=== PATIENT | female | born 1980 | race Caucasian/White ===

== ENCOUNTER 2018-03-01 12:01 | Emergency (ER) | payer OTHER ==
[2018-03-01 12:10] VITALS: BP 143/92
--- NOTE | 2018-03-01 12:38 | UC ---
Lower Extremity/Ankle HPI - HPI Summary HPI Summary: Right fifth toe ran over the last week by shopping cart has continued pain in right fifth toe - History of Current Complaint Chief Complaint: UCLowerExtremity Stated Complaint: TOE INJURY Time Seen by Provider: 03/01/18 12:31 Hx Obtained From: Patient Hx Last Menstrual Period: 02/10/18 ?: No Onset/Duration: Sudden Onset Pain Intensity: 5 Pain Scale Used: 0-10 Numeric Aggravating Factor(s): Standing, Ambulation Alleviating Factor(s): Rest, Elevation, Ice Able to Bear Weight: Yes - Allergies/Home Medications Allergies/Adverse Reactions: Allergies Allergy/AdvReac Type Severity Reaction Status Date / Time acetaminophen [From Percocet] Allergy Rash Verified 03/01/18 12:11 oxycodone [From Percocet] Allergy Rash Verified 03/01/18 12:11 zinc Allergy Vomiting Verified 03/01/18 12:11 Home Medications: Home Medications Methylphenidate HCl [Methylphenidate ER] 54 mg PO DAILY 03/01/18 [History Confirmed 03/01/18] PMH/Surg Hx/FS Hx/Imm Hx Previously Healthy: Yes - Surgical History Surgical History: Yes Surgery Procedure, Year, and Place: LAP APPY 2011. TUBAL LIGATION 06/2015 - Family History Known Family History: Positive: None - Social History Occupation: Employed Full-time Lives: With Family Alcohol Use: Rare Substance Use Type: None Smoking Status (MU): Never Smoked Tobacco Review of Systems Constitutional: Negative Skin: Negative Eyes: Negative ENT: Negative Respiratory: Negative Cardiovascular: Negative Gastrointestinal: Negative Genitourinary: Negative Motor: Negative Neurovascular: Negative Musculoskeletal: Arthralgia - right 5th toe, Edema - right fifth toe, Other: - bruising right fifth toe Neurological: Negative Psychological: Negative Is Patient Immunocompromised?: No All Other Systems Reviewed And Are Negative: Yes Physical Exam Triage Information Reviewed: Yes Appearance: Well-Appearing, No Pain Distress, Well-Nourished Vital Signs: Initial Vital Signs Temp 98 F 03/01/18 12:07 Pulse 100 03/01/18 12:07 Resp 20 03/01/18 12:07 BP 143/92 03/01/18 12:07 Pulse Ox 100 03/01/18 12:07 Vital Signs Reviewed: Yes Eye Exam: Normal Eyes: Positive: Conjunctiva Clear ENT Exam: Normal ENT: Positive: Normal ENT inspection, Hearing grossly normal. Negative: Muffled voice, Hoarse voice, Dental tenderness Dental Exam: Normal Neck exam: Normal Neck: Positive: Supple, Nontender Respiratory Exam: Normal Respiratory: Positive: Chest non-tender, No respiratory distress, No accessory muscle use Cardiovascular Exam: Normal Cardiovascular: Positive: RRR, Pulses Normal, Brisk Capillary Refill Musculoskeletal Exam: Normal, Other Musculoskeletal: Positive: Strength Limited @ - rith fifth toe, ROM Limited @ - right fifth toe, Edema @ - right fifth toe Neurological Exam: Normal Psychological Exam: Normal Skin Exam: Normal Diagnostics - Radiology No standard instances Xray Interpretation: No Acute Changes Radiology Interpretation Completed By: ED Physician, Radiologist Lower Extremity Course/Dx - Course Course Of Treatment: post op shoe, rice, ibuprofen follow with pcp prn - Differential Dx/Diagnosis Provider Diagnoses: right fifth toe crush injury/contusion Discharge - Sign-Out/Discharge Documenting (check all that apply): Discharge/Admit/Transfer - Discharge Plan Condition: Stable Disposition: HOME Patient Education Materials: Ibuprofen (By mouth), Contusion in Adults (ED), R.I.C.E. Treatment (ED), Crush Injury (ED) Referrals: Kalpesh Finch MD [Primary Care Provider] - If Needed - Billing Disposition and Condition Condition: STABLE Disposition: HOME
--- NOTE | 2018-03-01 12:39 | RAD ---
HISTORY: Right fifth toe pain status post injury COMPARISONS: None VIEWS: 3, Frontal, lateral, and oblique views of the fifth digit of the right foot FINDINGS: BONE DENSITY: Normal. BONES: There is no displaced fracture. JOINTS: There is no arthropathy. ALIGNMENT: There is no dislocation. SOFT TISSUES: Unremarkable. OTHER FINDINGS: None. IMPRESSION: NO ACUTE OSSEOUS INJURY. IF SYMPTOMS PERSIST, RECOMMEND REPEAT IMAGING.
== END 2018-03-01 13:00 | disposition home or self-care (01) ==
LOC: UCEAST 12:01
DX: S90.121A Contusion of right lesser toe(s) without damage to nail, initial encounter (principal); S97.121A Crushing injury of right lesser toe(s), initial encounter; W22.8XXA Striking against or struck by other objects, initial encounter; Y93.9 Activity, unspecified; Y92.512 Supermarket, store or market as the place of occurrence of the external cause; Z88.6 Allergy status to analgesic agent; Z88.5 Allergy status to narcotic agent
CPT/HCPCS: 99212; G0463

== ENCOUNTER 2019-07-06 16:04 | Emergency (ER) | payer OTHER ==
--- OUTSIDE RECORDS SUMMARY | 2019-07-06 16:23 | XMS REPORT | Continuity of Care Document ---
:1980 External Reference #:[id number] Author Name Marina Ramirez M.D. Address [address] [place] [address] Care Team Providers Name Role Phone Kalpesh Finch M.D. 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 Onset: 10/22/2017 Allergic rhinitis due to animals Marina Ramirez M.D. Onset: 03/05/2017 Toxic effect of venom Marina Ramirez M.D. Onset: 02/16/2014 Allergic rhinitis Marina Ramirez M.D. Onset: 02/16/2014 Allergic rhinitis due to pollen Marina Ramirez M.D. Onset: 02/16/2014 Cough Marina Ramirez M.D. Onset: 02/16/2014 Social History Type Date Description Comments Sex Unknown ETOH Use Occasionally consumes alcohol Tobacco Use Start: Unknown End: Patient is a former 15-20 years ago Unknown smoker Recreational Drug Use Never Used Drugs Allergies, Adverse Reactions, Alerts Active Allergies Reaction Severity Comments Date Zinc vomitting 02/16/2014 Percocet rash 02/16/2014 Medications Active Medications SIG Qnty Indications Ordering Date Provider Montelukast Sodium 1 by mouth every 30tabs J45.30 Marina Ramirez, 2018 10mg day M.DDina Tablets Symbicort Use 2 Inhalations 30.6units Ly 09/11/2016 80-4.5mcg/Act By Mouth Two Uldrich, 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 MDinaD. 50mcg Tablets Citalopram Darlow, Kalpesh Hydrobromide A., M.D. 40mg Tablets Fexofenadine HCL 1 po qd 30tabs Unknown 180mg Tablets Ventolin HFA 2 puffs by mouth 36gm Ly 108(90Base) every 4-6 hours Uldrich, INDUSTRI[employer] AERIAL INSTALLER-C mcg/Act Aerosol as needed for shortness of breath or coughing. Methylphenidate HCL 1 tab twice Unknown 20mg daily. Tablets Vitamin B Complex 1 by mouth every Unknown day Tablets Calcium 600+D3 Unknown [id number] Tablets Melatonin Unknown 10mg Capsules Cranberry Unknown 4200mg Capsules Vitamin D3 1 capsule by Unknown 1000Unit mouth once daily Capsules x 6 weeks Medications Administered in Office Medication SIG Qnty Indications Ordering Provider Date Injection Allergy Injection 11/04/2016 Injection Injection Allergy Injection 10/28/2016 Injection Injection Allergy Injection 09/23/2016 Injection Injection Allergy Injection 09/09/2016 Injection Injection Allergy Injection 08/19/2016 Injection Injection Allergy Injection 08/05/2016 Injection Injection Allergy Injection 07/22/2016 Injection Injection Allergy Injection 07/08/2016 Injection Injection Allergy Injection 07/01/2016 Injection Injection Allergy Injection 06/24/2016 Injection Injection Allergy Injection 06/10/2016 Injection Injection Allergy Injection 06/03/2016 Injection Injection Allergy Injection 04/29/2016 Injection Injection Allergy Injection 04/22/2016 Injection Injection Allergy Injection 04/17/2016 Injection Injection Allergy Injection 04/08/2016 Injection Injection Allergy Injection 04/01/2016 Injection Injection Allergy Injection 03/25/2016 Injection Injection Allergy Injection 03/04/2016 Injection Injection Allergy Injection 02/23/2016 Injection Injection Allergy Injection 02/15/2016 Injection Injection Allergy Injection 02/09/2016 Injection Injection Allergy Injection 02/05/2016 Injection Injection Allergy Injection 01/26/2016 Injection Injection Allergy Injection 01/19/2016 Injection Injection Allergy Injection 01/08/2016 Injection Injection Allergy Injection 12/29/2015 Injection Injection Allergy Injection 12/22/2015 Injection Injection Allergy Injection 08/29/2014 Injection Injection Allergy Injection 08/22/2014 Injection Injection Allergy Injection 08/12/2014 Injection Injection Allergy Injection 07/29/2014 Injection Injection Allergy Injection 07/15/2014 Injection Injection Allergy Injection 07/08/2014 Injection Injection Allergy Injection 06/24/2014 Injection Injection Allergy Injection 06/20/2014 Injection Injection Allergy Injection 06/01/2014 Injection Injection Allergy Injection 05/25/2014 Injection Injection Allergy Injection 04/27/2014 Injection Injection Allergy Injection 04/20/2014 Injection Injection Allergy Injection 04/13/2014 Injection Injection Allergy Injection 04/06/2014 Injection Injection Allergy Injection 03/30/2014 Injection Injection Allergy Injection 03/16/2014 Injection Injection Allergy Injection 03/09/2014 Injection Immunizations Description No Information Available Vital Signs Date Vital Result Comment 06/23/2019 4:16pm Height 64 inches 5'4" d Weight 168.00 lb Weight 76.205 kg Respiratory Rate 18 /min Heart Rate 91 /min O2 % BldC Oximetry 97 % BP Systolic 130 mmHg BP Diastolic 90 mmHg Asthma Control Test 20 Fractional Exhaled Nitric Oxide 8 BMI (Body Mass Index) 28.8 kg/m2 10/28/2018 4:10pm Height 64 inches d Weight 176.00 lb Weight 79.834 kg Respiratory Rate 20 /min Heart Rate 90 /min O2 % BldC Oximetry 97 % BP Systolic 134 mmHg BP Diastolic 94 mmHg Asthma Control Test 19 Fractional Exhaled Nitric Oxide 5 BMI (Body Mass Index) 30.2 kg/m2 Results Description No Information Available Procedures Date Code Description Status 06/23/2019 82544 Nitric Oxide Gas Determination Completed 06/23/2019 81307 Pre PFT Completed Medical Devices Description No Information Available Encounters Description No Information Available Assessments Date Code Description Provider 06/23/2019 J45.30 Mild persistent asthma, uncomplicated Marina Ramirez M.D. 06/23/2019 J30.89 Other allergic rhinitis Marina Ramirez M.D. 06/23/2019 J30.1 Allergic rhinitis due to pollen Marina Ramirez M.D. 06/23/2019 J30.81 Allergic rhinitis due to animal (cat) (dog) Marina Ramirez M.D. hair and dander Plan of Treatment Future Appointment(s):12/22/2019 4:20 pm - Marina Ramirez M.D. at [place] Functional Status Description No Information Available Mental Status Description No Information Available Referrals Description No Information Available
[2019-07-06 16:38] LABS: ABS Lymphocytes 1.8 10^3/ul (1.0-4.8); ABS Monocytes 0.5 10^3/ul (0-0.8); ABS Neutrophils 7.4 10^3/ul (1.5-7.7); Eosinophil % 0.1 %; Hematocrit 42 % (35-47); Hemoglobin 14.5 g/dL (12.0-16.0); Lymphocyte % 18.4 %; Mean Corpuscular HGB Conc 35 g/dL (31-36); Mean Corpuscular Hemoglobin 32 pg (27-31); Mean Corpuscular Volume 93 fL (80-97); Mean Platelet Volume 8.7 fL (7.4-10.4); Platelet Count 265 10^3/uL (150-450); Red Blood Count 4.53 10^6 /uL (3.70-4.87); Red Cell Distribution Width 14 % (10-15); White Blood Count 9.7 10^3/uL (3.5-10.8)
[2019-07-06 16:45] LABS: INR 0.99 (0.82-1.09)
[2019-07-06 16:55] LABS: Albumin 4.8 g/dL (3.2-5.2); Albumin/Globulin Ratio 1.9 (1-3); BUN/Creatinine Ratio 10.7 (8-20); Calcium 9.6 mg/dL (8.6-10.3); EGFR Non-African American 85.2 (>60); Globulin 2.5 g/dL (2-4); Potassium 3.7 mmol/L (3.5-5.0); Total Bilirubin 1.1 mg/dL (0.2-1.0); Total Protein 7.3 g/dL (6.4-8.9)
[2019-07-06] MEDS ORDERED: Aspirin 81 mg CHEW TAB* 81 MG TAB.CHEW PO ONE (18:25)
[2019-07-06 20:13] VITALS: BP 128/91
--- NOTE | 2019-07-06 22:03 | ED ---
HPI Chest Pain - HPI Summary HPI Summary: This patient is a 39 year old F presenting to [facility] accompanied by boyfriend with a chief complaint of chest pain since 1399. Patient states that she was at Dr. Finch's office for a routine check up and was placed on a 24 hour BP cuff. At 1400 patient states she received a call about her son who is bipolar. The patient was told he was having a hard day. As a result the patient's BP increased to 146/119. Patient contacted Dr. Finch and was informed to go to the ED. The patient rates the pain 2/10 in severity characterized as pressure. Symptoms aggravated by phone call about son. Symptoms alleviated by nothing. Patient reports chest pain and GRAHAM. Patient denies sob, diaphoresis, nausea and dizziness. Patient denies and PMHx of stress test, blood clots and NC. Patient reports rare EtOH use. Patient denies tobacco use and substance abuse. Medications reviewed. Allergies noted. Allergies Allergy/AdvReac Type Severity Reaction Status Date / Time acetaminophen [From Percocet] Allergy Rash Verified 07/06/19 17:30 oxycodone [From Percocet] Allergy Rash Verified 07/06/19 17:30 zinc Allergy Vomiting Verified 07/06/19 17:30 Home Medications Medication Instructions Recorded Confirmed Type Beclomethasone Dipropionate [Qnasl] 21.2 gm BOTH NARES DAILY 07/06/19 07/06/19 History Budesonide/Formote 80/4.5(NF) 1 puff INH BID 07/06/19 07/06/19 History [Symbicort 80/4.5 (NF)] Citalopram TAB* [CeleXA TAB*] 40 mg PO DAILY 07/06/19 07/06/19 History Levothyroxine TAB* [Synthroid TAB*] 50 mcg PO DAILY 07/06/19 07/06/19 History Methylphenidate TAB* [Ritalin TAB*] 20 mg PO BID MDD 40 mg 07/06/19 07/06/19 History Montelukast Sodium TAB* [Singulair 10 mg PO DAILY 07/06/19 07/06/19 History TAB*] Silver Sulfadiazine 1%* [SILVadine 1 applic TOPICAL BID 07/06/19 07/06/19 History 1%*] - History of Current Complaint Chief Complaint: EDChestPainROMI Time Seen by Provider: 07/06/19 18:04 Hx Obtained From: Patient Hx Last Menstrual Period: 02/10/18 Onset/Duration: Started Hours Ago - 1400, Resolved Current Severity: None Pain Intensity: 0 Pain Scale Used: 0-10 Numeric Chest Pain Location: Diffuse Chest Pain Radiates: No Character: Pressure/Squeezing Aggravating Factor(s): Nothing Alleviating Factor(s): Nothing Associated Signs and Symptoms: Positive: Chest Pain, Recent Stress - Call about Bipolar son having a bad day, Other: - GRAHAM - Allergy/Home Medications Allergies/Adverse Reactions: Allergies Allergy/AdvReac Type Severity Reaction Status Date / Time acetaminophen [From Percocet] Allergy Rash Verified 07/06/19 17:30 oxycodone [From Percocet] Allergy Rash Verified 07/06/19 17:30 zinc Allergy Vomiting Verified 07/06/19 17:30 Home Medications: Home Medications Beclomethasone Dipropionate [Qnasl] 21.2 gm BOTH NARES DAILY 07/06/19 [History Confirmed 07/06/19] Budesonide/Formote 80/4.5(NF) [Symbicort 80/4.5 (NF)] 1 puff INH BID 07/06/19 [ History Confirmed 07/06/19] Citalopram TAB* [CeleXA TAB*] 40 mg PO DAILY 07/06/19 [History Confirmed ] Levothyroxine TAB* [Synthroid TAB*] 50 mcg PO DAILY 07/06/19 [History Confirmed 07/06/19] Methylphenidate TAB* [Ritalin TAB*] 20 mg PO BID MDD 40 mg 07/06/19 [History Confirmed 07/06/19] Montelukast Sodium TAB* [Singulair TAB*] 10 mg PO DAILY 07/06/19 [History Confirmed 07/06/19] Silver Sulfadiazine 1%* [SILVadine 1%*] 1 applic TOPICAL BID 07/06/19 [History Confirmed 07/06/19] PMH/Surg Hx/FS Hx/Imm Hx Endocrine/Hematology History: Reports: Hx Thyroid Disease - HYPO Denies: Hx Diabetes, Hx Systemic Lupus Erythematosus Cardiovascular History: Denies: Hx Congestive Heart Failure, Hx Hypertension, Hx Pacemaker/ICD, Other Cardiovascular Problems/Disorders Respiratory History: Reports: Hx Asthma - ALLERGIES Denies: Hx Chronic Obstructive Pulmonary Disease (COPD), Other Respiratory Problems/Disorders History: Denies: Hx Dialysis, Hx Renal Disease Musculoskeletal History: Denies: Hx Rheumatoid Arthritis, Hx Osteoporosis Sensory History: Reports: Hx Contacts or Glasses - GLASSES Denies: Hx Hearing Aid Opthamlomology History: Reports: Hx Contacts or Glasses - GLASSES Neurological History: Reports: Hx Migraine - WITH SINUS INFECTIONS, Other Neuro Impairments/Disorders - ADHD, CHRONIC FATIGUE SYNDROME Psychiatric History: Reports: Hx Anxiety, Hx Depression Denies: Hx Panic Disorder - Cancer History Hx Chemotherapy: No - Surgical History Surgery Procedure, Year, and Place: LAP APPY 2011. TUBAL LIGATION 06/2015 Hx Anesthesia Reactions: No Infectious Disease History: No Infectious Disease History: Denies: Traveled Outside the [place] in Last 30 Days - Family History Known Family History: Positive: None - Social History Alcohol Use: Occasionally Substance Use Type: Reports: None Smoking Status (MU): Never Smoked Tobacco Review of Systems Negative: Fever Positive: Chest Pain Positive: Headache All Other Systems Reviewed And Are Negative: Yes Physical Exam - Summary Physical Exam Summary: Constitutional: Well-developed, Well-nourished, Alert. (-) Distressed Skin: Warm, Dry HENT: Normocephalic; Atraumatic Eyes: Conjunctiva normal Neck: Musculoskeletal ROM normal neck. (-) JVD, (-) Stridor, (-) Tracheal deviation Cardio: Rhythm regular, rate normal, Heart sounds normal; Intact distal pulses; . Radial pulses are 2+ and symmetric. (-) Murmur, Good pulses bilaterally in radius, No calf tenderness, No venous cords, No pain with dorsiflexion of foot. Pulmonary/Chest wall: Effort normal. (-) Respiratory distress, (-) Wheezes, (-) Rales Abd: Soft, (-) tenderness, (-) Distension, (-) Guarding, (-) Rebound Musculoskeletal: (-) Edema Lymph: (-) Cervical adenopathy Neuro: Alert, Oriented x3 Psych: Mood and affect Normal Triage Information Reviewed: Yes Vital Signs On Initial Exam: Initial Vitals Temp Pulse Resp BP Pulse Ox 98.7 F 89 16 159/103 100 07/06/19 16:15 07/06/19 16:15 07/06/19 16:15 07/06/19 16:15 09/24/19 16:15 Vital Signs Reviewed: Yes Diagnostics - Vital Signs Vital Signs Temp Pulse Resp BP Pulse Ox 07/06/19 20:13 98.3 F 76 18 128/91 96 07/06/19 20:00 78 17 97 07/06/19 19:55 76 18 128/90 96 07/06/19 19:25 78 15 137/104 97 07/06/19 19:00 70 13 97 07/06/19 18:55 68 16 152/95 98 07/06/19 18:25 76 16 152/102 96 07/06/19 18:00 76 24 97 07/06/19 17:55 80 19 148/110 98 07/06/19 17:35 4 07/06/19 17:25 170/109 07/06/19 16:15 98.7 F 89 16 159/103 100 - Laboratory Lab Results: Lab Results 07/06/19 07/06/19 07/06/19 Range/Units 16:29 16:29 16:29 WBC 9.7 (3.5-10.8) 10^3/uL RBC 4.53 (3.70-4.87) 10^6 /uL Hgb 14.5 (12.0-16.0) g/dL Hct 42 (35-47) % MCV 93 (80-97) fL MCH 32 H (27-31) pg MCHC 35 (31-36) g/dL RDW 14 (10-15) % Plt Count 265 (150-450) 10^3/uL MPV 8.7 (7.4-10.4) fL Neut % (Auto) 76.4 % Lymph % (Auto) 18.4 % [place] % (Auto) 4.7 % Eos % (Auto) 0.1 % Baso % (Auto) 0.4 % Absolute Neuts (auto) 7.4 (1.5-7.7) 10^3/ul Absolute Lymphs (auto) 1.8 (1.0-4.8) 10^3/ul Absolute Monos (auto) 0.5 (0-0.8) 10^3/ul Absolute Eos (auto) 0.0 (0-0.6) 10^3/ul Absolute Basos (auto) 0.0 (0-0.2) 10^3/ul Absolute Nucleated RBC 0.0 10^3/ul Nucleated RBC % 0.0 INR (Anticoag Therapy) 0.99 (0.82-1.09) Sodium 137 (135-145) mmol/L Potassium 3.7 (3.5-5.0) mmol/L Chloride 103 (101-111) mmol/L Carbon Dioxide 26 (22-32) mmol/L Anion Gap 8 (2-11) mmol/L BUN 8 (6-24) mg/dL Creatinine 0.75 (0.51-0.95) mg/dL Est GFR ( Amer) 103.0 (>60) Est GFR (Non-Af Amer) 85.2 (>60) BUN/Creatinine Ratio 10.7 (8-20) Glucose 103 H (70-100) mg/dL Calcium 9.6 (8.6-10.3) mg/dL Total Bilirubin 1.10 H (0.2-1.0) mg/dL AST 17 (13-39) U/L ALT 13 (7-52) U/L Alkaline Phosphatase 65 (34-104) U/L Troponin I 0.00 (<0.04) ng/mL Total Protein 7.3 (6.4-8.9) g/dL Albumin 4.8 (3.2-5.2) g/dL Globulin 2.5 (2-4) g/dL Albumin/Globulin Ratio 1.9 (1-3) 07/06/19 Range/Units 19:22 WBC (3.5-10.8) 10^3/uL RBC (3.70-4.87) 10^6 /uL Hgb (12.0-16.0) g/dL Hct (35-47) % MCV (80-97) fL MCH (27-31) pg MCHC (31-36) g/dL RDW (10-15) % Plt Count (150-450) 10^3/uL MPV (7.4-10.4) fL Neut % (Auto) % Lymph % (Auto) % [place] % (Auto) % Eos % (Auto) % Baso % (Auto) % Absolute Neuts (auto) (1.5-7.7) 10^3/ul Absolute Lymphs (auto) (1.0-4.8) 10^3/ul Absolute Monos (auto) (0-0.8) 10^3/ul Absolute Eos (auto) (0-0.6) 10^3/ul Absolute Basos (auto) (0-0.2) 10^3/ul Absolute Nucleated RBC 10^3/ul Nucleated RBC % INR (Anticoag Therapy) (0.82-1.09) Sodium (135-145) mmol/L Potassium (3.5-5.0) mmol/L Chloride (101-111) mmol/L Carbon Dioxide (22-32) mmol/L Anion Gap (2-11) mmol/L BUN (6-24) mg/dL Creatinine (0.51-0.95) mg/dL Est GFR ( Amer) (>60) Est GFR (Non-Af Amer) (>60) BUN/Creatinine Ratio (8-20) Glucose (70-100) mg/dL Calcium (8.6-10.3) mg/dL Total Bilirubin (0.2-1.0) mg/dL AST (13-39) U/L ALT (7-52) U/L Alkaline Phosphatase (34-104) U/L Troponin I 0.01 (<0.04) ng/mL Total Protein (6.4-8.9) g/dL Albumin (3.2-5.2) g/dL Globulin (2-4) g/dL Albumin/Globulin Ratio (1-3) Result Diagrams: 07/06/19 16:29 07/06/19 16:29 Lab Statement: Any lab studies that have been ordered have been reviewed, and results considered in the medical decision making process. - Radiology Chest Xray Radiology Interpretation Completed By: ED Physician Summary of Radiographic Findings: Chest Xray reveals, per ED Physician, no acute process. - EKG 1610 Cardiac Rate: Tachycardia EKG Rhythm: Sinus Tachycardia - 105 bpm EKG Comparison: Other - new changes compared to 02/17/13 Summary of EKG Findings: EKG reveal a sinus tachacardia at 105 bpm with Q-waves 3 and avf. New changes when compared to prior on 02/17/13. 1731 Cardiac Rate: NL - 60 bpm EKG Rhythm: Sinus Rhythm EKG Comparison: Other - changes are new when compared to prior 02/17/13 Summary of EKG Findings: EKG reveals sinus rhythm at 60 bpm with Q-waves 3 and avf. New changes compaired to prior 02/17/13. Chest Pain Course/Dx - Course Course Of Treatment: Patient is here with chest pain after having a stressful day. Patient's symptoms are overall benign in nature outside of her hypertension. Patient had an EKG performed which was grossly unremarkable. Patient had serial troponins which were negative. Patient had a well score is 0 and was perc negative. Patient had a negative chest x-ray. Patient was discharged to follow-up with her primary care doctor sent her here for possible stress test. - Diagnoses Provider Diagnoses: Hypertension, Chest pain Discharge ED - Sign-Out/Discharge Documenting (check all that apply): Patient Departure - discharge Patient Received Moderate/Deep Sedation with Procedure: No - Discharge Plan Condition: Stable Disposition: HOME Patient Education Materials: Chest Pain (ED) Referrals: Kalpesh Finch MD [Primary Care Provider] - Additional Instructions: Please call your primary care doctor to have an appointment in one to 3 days Please return if you have resting chest pain, trouble breathing, any other concerning symptoms - Billing Disposition and Condition Condition: STABLE Disposition: Home - Attestation Statements Document Initiated by Oscar: Yes Documenting Scribe: Ashley Huber Provider For Whom Oscar is Documenting (Include Credential): Dr. Kike Walters MD Scribe Attestation: Ashley Shelton scribed for Dr. Kike Walters MD on 07/09/19 at 0744. Scribe Documentation Reviewed: Yes Provider Attestation: The documentation as recorded by the Ashley bennett accurately reflects the service I personally performed and the decisions made by , Dr. Kike Walters MD Status of Scribe Document: Viewed
== END 2019-07-06 20:13 | disposition home or self-care (01) ==
LOC: ED 16:04
DX: R07.9 Chest pain, unspecified (principal); I10 Essential (primary) hypertension; E03.9 Hypothyroidism, unspecified; F41.9 Anxiety disorder, unspecified; F32.9 Major depressive disorder, single episode, unspecified; J45.909 Unspecified asthma, uncomplicated; Z79.899 Other long term (current) drug therapy; Z88.6 Allergy status to analgesic agent; Z88.5 Allergy status to narcotic agent
CPT/HCPCS: 36415; 71045; 80053; 84484; 85025; 85610; 93005; 99283; A9270-GY